=== PATIENT | male | born 1965 | race Two or more races ===

== ENCOUNTER 2019-11-26 18:59 | Emergency (ER) | payer MEDICAID, MEDICARE, OTHER ==
[~2019-11-26] VITALS: Ht 177.8 cm; Wt 65.4 kg
--- NOTE | 2019-11-26 19:02 | NUR ---
triage note: attempted to call for triage, no answer in lobby
[2019-11-26 19:07] VITALS: BP 126/76
== END 2019-11-26 20:08 | disposition home or self-care (01) ==
LOC: ED 20:00
DX: T16.1XXA Foreign body in right ear, initial encounter (principal); H60.501 Unspecified acute noninfective otitis externa, right ear; F17.210 Nicotine dependence, cigarettes, uncomplicated; E11.9 Type 2 diabetes mellitus without complications; Z21 Asymptomatic human immunodeficiency virus [HIV] infection status; X58.XXXA Exposure to other specified factors, initial encounter; Y93.89 Activity, other specified; Y92.89 Other specified places as the place of occurrence of the external cause; Y99.8 Other external cause status
CPT/HCPCS: 69200; 99284; 99406